=== PATIENT | female | born 1945 | race Caucasian/White ===

== ENCOUNTER 2019-11-01 09:33 | Emergency (ER) | payer MEDICARE, SELFPAY ==
[2019-11-01 09:40] VITALS: BP 155/64; PULSE 94; RESP 20; TEMP 36.1; O2SAT 97
--- NOTE | 2019-11-01 11:44 | PC.NURSE ---
pt chose to leave without being seen, pt was triaged. left at 1144
== END 2019-11-01 11:45 | disposition left against medical advice (07) ==
PROVIDERS: PCP Emergency Medicine
DX: R22.2 Localized swelling, mass and lump, trunk (principal)
CPT/HCPCS: 99199

== ENCOUNTER 2019-11-02 12:16 | Emergency (ER) | payer MEDICARE, SELFPAY ==
--- NOTE | ~2019-11-02 | CT_ITS ---
EXAMINATION: CT abdomen pelvis w con EXAM DATE: 11/02/2019 14:54 INDICATION: Abdominal wall abscess. TECHNIQUE: Spiral CT of the abdomen and pelvis was performed following intravenous injection of 100 m L Omnipaque 350. Axial, coronal and sagittal images were reviewed. The dose-length product (DLP) fo r this examination was 1521.05 mGy-cm. The exposure was tailored according to patient size (auto mA exposure control), and iterative reconstruction (ASIR) was used as additional dose reduction techniqu e. There is no prior study for comparison. FINDINGS: At the level of the umbilicus extending to the abdominal wall there is a fluid collection e xtending to the right of midline measuring about 2 x 4 cm with inflammation surrounding the well orga nized wall. There is inflammation surrounding the abscess wall and evidence of skin thickening, cellu litis. The port for gastric banding device is about 3 cm to the left of this abscess, not presently a ffected. The liver, spleen, adrenal glands and pancreas are unremarkable. There are cholecystectomy clips. P ortal and splenic veins are patent. Kidneys enhance symmetrically. There is no hydronephrosis. Th e uterus is anteverted and morphologically normal. The bladder is unremarkable. There is no retrop eritoneal or pelvic lymphadenopathy. There is mild to moderate scattered arteriosclerotic disease. The appendix is normal. Gastric banding device. Rectosigmoid anastomosis. There is expected amount of colonic stool. No free intraperitoneal gas. The heart is normal in size. There are no pericar dial or pleural effusions. Lingular subsegmental atelectasis. There are no osteoblastic or osteolyt ic lesions identified. IMPRESSION: 1. Small right infraumbilical/abdominal wall abscess. Reviewed, dictated and finalized at location A. ING MACHINE TECHNICIAN
[2019-11-02 12:24] VITALS: BP 136/49; PULSE 74; RESP 16; TEMP 36.7; O2SAT 99
--- NOTE | 2019-11-02 13:02 | ED.SKABFB ---
HPI - Skin/Abscess/Foreign Bdy General Chief complaint: Skin/Abscess/Foreign Body <Yolie Grimm PA-C - Last Filed: 11/02/19 16:49> Stated complaint: abscess to abdomen <ADAN Morales Last Filed: 11/02/19 16:49> Time Seen by Provider: 11/02/19 12:38 <ADAN Morales Last Filed: 11/02/19 16:49> Source: patient <ADAN Morales Last Filed: 11/02/19 16:49> Mode of arrival: ambulatory <ADAN Morales Last Filed: 11/02/19 16:49> Limitations: no limitations <ADAN Morales Last Filed: 11/02/19 16:49> History of Present Illness HPI narrative: This is a 74 year old female that presents to the ER for abscess to abdominal wall x 2 weeks. Reports a couple days ago she noted some drainage to the area. Reports some low grade fevers at night. Denies nausea, vomiting, dysuria or hematuria. <ADAN Morales Last Filed: 11/02/19 16:49> Related Data Home medications: Home Medications Medication Instructions Recorded Confirmed duloxetine 60 mg PO BID 11/02/19 empagliflozin [Jardiance] mg 11/02/19 esomeprazole magnesium [Nexium] mg 11/02/19 glimepiride mg 11/02/19 sitagliptin [Januvia] 50 mg PO DAILY 11/02/19 <ADAN Morales Last Filed: 11/02/19 16:49> Allergies/Adverse reactions: Allergies Allergy/AdvReac Type Severity Reaction Status Date / Time Sulfa (Sulfonamide Allergy Unknown Anaphylaxis Verified 11/02/19 12:34 Antibiotics) vancomycin AdvReac Redness of Verified 11/02/19 12:34 Skin <ADAN Morales Last Filed: 11/02/19 16:49> Review of Systems Review of Systems: Narrative: CONSTITUTIONAL: Reports fever GASTROINTESTINAL: Denies abdominal pain, nausea, vomiting GENITOURINARY: Denies dysuria or hematuria. SKIN: Reports abscess <Yolie Grimm PA-C - Last Filed: 11/02/19 16:49> All systems reviewed & are unremarkable except as noted in HPI and below <Yolie Grimm PA-C - Last Filed: 11/02/19 16:49> [facility] Past Medical History Medical History: Medical History (Updated 11/02/19 @ 16:48 by Yolie Grimm PA-C) History of depression History of diabetes mellitus History of hyperlipidemia History of hypertension History of seizures <Yolie Grimm PA-C - Last Filed: 11/02/19 16:49> Surgical History Surgical History: Surgical History (Updated 11/02/19 @ 13:10 by Yolie Grimm PA-C) History of gastric bypass History of inguinal hernia repair History of partial colectomy History of tonsillectomy <Yolie Grimm PA-C - Last Filed: 11/02/19 16:49> Family History Family History: Family History (Updated 01/06/18 @ 12:11 by DOCTOR UNKNOWN) Father Family history of cardiovascular disease, Onset Age: 67 Mother Family history of lung cancer, Onset Age: 56 <Yolie Grimm PA-C - Last Filed: 11/02/19 16:49> Social History Social History: Social History Smoking status: Current every day smoker Alcohol intake: current Gender identity (if verbalized by the patient): Female <Yolie Grimm PA-C - Last Filed: 11/02/19 16:49> Exam Narrative: Exam Narrative: GENERAL: Well-appearing, obese, and in no acute distress. HEAD: Normocephalic, atraumatic. EYES: EOMI. CHEST: Clear to auscultation. No respiratory distress. No wheezes rales or rhonchi HEART: Regular rate and rhythm. No murmur heard. Normal peripheral pulses. ABDOMEN: Soft, nontender, nondistended, normal active bowel sounds. 10cm area of erythema and induration to the right of the umbilicus, with spontaneous purulent drainage EXTREMITIES: Normal range of motion. No edema. SKIN: Warm, dry, no rash. NEURO: No focal deficits. Alert and oriented x3. PSYCH: Normal mood and affect <Yolie Grimm PA-C - Last Filed: 11/02/19 16:49> Course ANIME DESIGNER/PA Physician Supervision For this encounter, I have reviewed the PA documentation, treatment plan and med
[2019-11-02 13:19] LABS: Basophils Percent Auto 0.4 % (0.2-1.2); Eosinophils Absolute Auto 0.2 K/mm3 (0-0.3); Eosinophils Percent Auto 2.7 % (0-4.4); Hematocrit 38.2 % (37.0-47.0); Hemoglobin 11.9 g/dL (12.0-15.0); Immature Granulocyte Absolute 0.04 K/mm3 (0.00-0.031); Immature Granulocyte Percent A 0.5 % (0-0.5); Lymphocytes Absolute Auto 1.66 K/mm3 (0.9-3.2); Lymphocytes Percent Auto 19.7 % (18.3-44.2); Mean Corpuscular HGB Conc 31.2 g/dl (32-36); Mean Corpuscular Hemoglobin 26.6 pg (26-34); Mean Corpuscular Volume 85.5 fl (80-100); Monocytes Absolute Auto 0.6 K/mm3 (0.1-0.6); Monocytes Percent Auto 6.7 % (2.6-8.5); Neutrophils Absolute Auto 5.9 K/mm3 (1.3-6.7); Platelet Count Result 287 k/mm3 (150-375); Red Blood Count 4.47 M/mm3 (4.2-5.4); Red Cell Distribution Width 14.1 % (11.5-14.5); White Blood Count 8.4 K/mm3 (4.5-10.0)
[2019-11-02 13:36] LABS: Lactic Acid Reflex 1.4 mmol/L (0.7-2.1)
[2019-11-02 13:37] LABS: Blood Urea Nitrogen 13 mg/dL (7-17); CRP 7.5 mg/dL (<1.0); Calcium 9.2 mg/dL (8.4-10.2); Carbon Dioxide 28 mmol/L (22-30); Chloride 97 mmol/L (98-107); Estimated CRCL calculation 75 ml/min; Estimated Glomerular Filt Rate > 60; Glucose 155 mg/dL (65-105); Potassium 4.4 mmol/L (3.4-5.0); Sodium 138 mmol/L (137-145)
[2019-11-02 13:46] LABS: Blood Urea Nitrogen 14 mg/dL (8-26); Estimated CRCL calculation 59 ml/min; Estimated Glomerular Filt Rate > 60
[2019-11-02 15:29] LABS: Erythrocyte Sedimentation Rate 59 mm/hr (0-20)
[2019-11-02] MEDS: ceFAZolin 2 GM/D5W 50 ML 2 GM/50 ML BAG IVPB (17:00)
[2019-11-02 17:30] VITALS: BP 138/68; PULSE 88; RESP 16; O2SAT 97
[2019-11-02 17:58] VITALS: BP 139/79; PULSE 80; RESP 16; TEMP 36.8; O2SAT 98
[2019-11-02 17:59] VITALS: BP 132/42; PULSE 69; RESP 12; TEMP 37.1; O2SAT 96
--- NOTE | 2019-11-02 18:55 | PC.NURSE ---
[facility] Trip # [id number] ETA [id number]
[2019-11-02 21:14] VITALS: BP 154/97; PULSE 76; TEMP 37; O2SAT 97
--- NOTE | 2019-11-02 21:14 | PC.NURSE ---
Called [facility] to check on ETA and they updated with 2199.
--- NOTE | 2019-11-02 21:14 | PC.NURSE ---
Called [facility] to transport pt to a higher level of care. They accepted and stated they have a truck enroute and should be here in 20 min (
== END 2019-11-02 21:51 | disposition short-term general hospital (02) ==
PROVIDERS: Physician Assistant; Emergency Provider Emergency Medicine; PCP Emergency Medicine
DX: L02.211 Cutaneous abscess of abdominal wall (principal); E11.9 Type 2 diabetes mellitus without complications; E78.5 Hyperlipidemia, unspecified; I10 Essential (primary) hypertension; Z79.84 Long term (current) use of oral hypoglycemic drugs; Z98.84 Bariatric surgery status; Z90.49 Acquired absence of other specified parts of digestive tract; F17.290 Nicotine dependence, other tobacco product, uncomplicated
CPT/HCPCS: 36415; 74177; 80048; 83605; 85025; 85652; 86140; 87040; 87070; 87147; 87186; 87205; 96365; 96375; 99285; J0690; J2543; Q9967